=== PATIENT | female | born 1955 | race Caucasian/White ===

== ENCOUNTER 2017-03-30 12:34 | Outpatient (CLI) | payer BC, OTHER ==
[~2017-03-30] VITALS: Ht 162.6 cm; Wt 71.8 kg
[~2017-03-30 12:34] MED LIST: ACYCLOVIR800 MG PO; CYANOCOBAL1000 MCG/1 IM; FISH OIL CONC1000 MG PO; FLEXERIL 1010 MG/TAB PO; LEVOTHYROXINE; LORTAB 5/500 501 TAB PO; NORCO 325 MG-51 TAB PO; PREDNISONE10 MG PO; SYNTHROID0.05 MG/TA PO; TOPAMAX 100MG100 M1 PO; TOPAMAX 100MG100 MG PO; VITAMIN D 400400 IU PO; ZITHROMAX Z PA250 MG PO
[2017-03-30] MEDS ORDERED: NORCO 325 MG-7.1 TAB PO (12:58)
[2017-03-30] MEDS ORDERED: CYTOMEL 2525 MCG/TAB PO (12:59)
[2017-03-30] MEDS ORDERED: LINZESS145CAP PO (13:01)
[2017-03-30 13:05] VITALS: BP 118/76; PULSE 87; TEMP 98.3
== END 2017-03-30 15:03 | disposition home or self-care (01) ==
LOC: EUO 12:34
DX: M81.0 Age-related osteoporosis without current pathological fracture (principal)
CPT/HCPCS: J3489

== ENCOUNTER → 2018-07-18 | Outpatient (CLI) | payer BC, OTHER ==
[~2018-07-18] MED LIST changes: +CYTOMEL 2525 MCG/TAB PO; +LINZESS145CAP PO; +NORCO 325 MG-7.1 TAB PO
== END ==
LOC: MC.RAD 05-10 07:20
DX: Z12.31 Encounter for screening mammogram for malignant neoplasm of breast (principal)

== ENCOUNTER 2018-09-25 14:40 | Outpatient (CLI) | payer BC, OTHER ==
[~2018-09-25] VITALS: Ht 162.6 cm; Wt 72.8 kg
[~2018-09-25 14:40] MED LIST changes: -VITAMIN D 400400 IU PO; +VITAMIND3 5000 PO
[2018-09-25] MEDS ORDERED: ULTRAM 50MG TAB50 MG PO (15:08)
[2018-09-25] MEDS ORDERED: MAXALT MLT10 MG/TAB PO (15:09)
[2018-09-25] MEDS ORDERED: PHENTERMINE15 MG PO (15:09)
[2018-09-25] MEDS ORDERED: FORTAMET500 M1 PO (15:10)
[2018-09-25 15:14] VITALS: BP 115/62; PULSE 66; TEMP 97.9
== END 2018-09-25 16:00 | disposition home or self-care (01) ==
LOC: EUO 14:40
DX: M81.0 Age-related osteoporosis without current pathological fracture (principal)
CPT/HCPCS: J3489

== ENCOUNTER 2019-06-17 14:34 | Emergency (ER) | payer BC, OTHER ==
[~2019-06-17] VITALS: Ht 162.6 cm; Wt 68.2 kg
[~2019-06-17 14:34] MED LIST changes: +FORTAMET500 M1 PO; +MAXALT MLT10 MG/TAB PO; +PHENTERMINE15 MG PO; +ULTRAM 50MG TAB50 MG PO
[2019-06-17 14:40] VITALS: TEMP 99.1
[2019-06-17] MEDS ORDERED: FLEXERIL 1010 MG/TAB PO (15:35)
[2019-06-17 16:00] LABS: ALANINE AMINOTRANSFERASE 10 U/L (9-52); ALBUMIN 4.1 gm/dL (3.5-5.0); ALKALINE PHOSPHATASE 63 U/L (50-136); ANION GAP 9 mmol/L (7-16); AST,SGOT 16 U/L (15-37); BILIRUBIN,TOTAL 0.4 mg/dL (0.0-1.0); BLOOD UREA NITROGEN 14 mg/dL (7-17); CALCIUM 9.3 mg/dL (8.4-10.2); CARBON DIOXIDE 21 mmol/L (22-30); CHLORIDE 111 mmol/L (98-107); CREATININE, serum 0.78 (0.52-1.25); GLUCOSE 80 mg/dL (74-106); POTASSIUM 3.8 mmol/L (3.4-5.0); SODIUM 141 mmol/L (137-145); TOTAL PROTEIN 7.2 gm/dL (6.4-8.2)
[2019-06-17 16:02] LABS: C-REACTIVE PROTEIN < 0.5 mg/dL (0.0-0.9)
[2019-06-17 16:10] LABS: BASO % 0.7 % (0.0-2.0); EOS # 0.2 (0.0-0.7); EOS % 2.7 % (0-4.0); GRAN % 34.3 % (42.2-75.2); HEMATOCRIT 40.2 % (37.0-47.0); LYMPH # 3.1 (1.2-3.4); LYMPH % 53.9 % (20.0-51.0); MEAN CELL VOLUME 90 fl (80.0-100.0); MEAN CORPUSCULAR HEMOGLOBIN 29 pg (27.0-31.0); MEAN CORPUSCULAR HGB CONC 32 g/dl (33.0-37.0); MEAN PLATELET VOLUME 10.1 fl (7.4-10.4); MONO # 0.5 (0.1-0.6); MONO % 8.2 % (1.7-9.3); PLATELET COUNT 217 K/mm3 (130-400); RED BLOOD COUNT 4.47 M/mm3 (4.10-5.30); REDCELL DISTRIBUTION WIDTH-CV 12.6 % (11.5-14.5)
[2019-06-17 16:38] LABS: ERYTHROCYTE SEDIMENTATION RATE 5 mm/hr (0-30)
[2019-06-17 17:19] VITALS: BP 122/79; PULSE 75
== END 2019-06-17 17:20 | disposition home or self-care (01) ==
LOC: COL.ER 14:34
PROVIDERS: Emergency Medicine
DX: M25.562 Pain in left knee (principal); M79.7 Fibromyalgia; Z90.710 Acquired absence of both cervix and uterus; Z86.718 Personal history of other venous thrombosis and embolism; Z79.84 Long term (current) use of oral hypoglycemic drugs; Z87.891 Personal history of nicotine dependence

== ENCOUNTER 2019-09-30 14:30 | Outpatient (CLI) | payer MEDICARE, OTHER ==
[~2019-09-30] VITALS: Ht 162.6 cm; Wt 70.1 kg
[~2019-09-30 14:30] MED LIST changes: +MASON NATURAL2000 IU PO; -VITAMIND3 5000 PO
[2019-09-30 15:27] VITALS: BP 122/72; PULSE 74; TEMP 98
[2019-09-30] MEDS ORDERED: SYNTHROID0.088 MG/T PO (15:38)
[2019-09-30] MEDS ORDERED: MAXALT10 MG PO (15:39)
== END 2019-09-30 17:08 | disposition home or self-care (01) ==
LOC: EUO 14:30
DX: M81.0 Age-related osteoporosis without current pathological fracture (principal)
CPT/HCPCS: J3489

== ENCOUNTER → 2020-11-03 | Outpatient (CLI) | payer MEDICARE, OTHER ==
[~2020-11-03] VITALS: Ht 162.6 cm; Wt 72.9 kg
[~2020-11-03] MED LIST changes: +MAXALT10 MG PO; +SYNTHROID0.088 MG/T PO
[2020-11-03 15:20] VITALS: BP 117/62; PULSE 52; TEMP 98.4
== END ==
LOC: EUO 14:45
DX: M81.0 Age-related osteoporosis without current pathological fracture (principal)
CPT/HCPCS: J3489

== ENCOUNTER 2021-10-21 12:19 | Outpatient (CLI) | payer MEDICARE, OTHER ==
[~2021-10-21] VITALS: Ht 162.6 cm; Wt 72.8 kg
[~2021-10-21 12:19] MED LIST changes: +SYNTHROID0.075 MG/T PO; -SYNTHROID0.088 MG/T PO
[2021-10-21] MEDS ORDERED: MASON NATURAL2000 IU PO (13:02)
[2021-10-21] MEDS ORDERED: RESTASIS MULTI5.5 ML OP (13:02)
[2021-10-21] MEDS ORDERED: NURTEC ODT75 MG PO ×2 (13:02→13:41)
[2021-10-21] MEDS ORDERED: NATURAL E400 IU PO (13:03)
[2021-10-21 13:12] VITALS: BP 127/82; PULSE 82; TEMP 98
[2021-10-21] MEDS ORDERED: REPATHA SU140 MG/1 M SQ (13:33)
[2021-10-21] MEDS ORDERED: VOLTAREN SR25 MG/TAB PO (13:40)
--- NOTE | 2021-10-21 13:40 | NUR ---
IV DC'd with catheter intact. Pt exits dept with steady gait.
[2021-10-21] MEDS ORDERED: REVIA 50MG TABL50 MG PO (13:41)
[2021-10-21] MEDS ORDERED: MAXALT MLT10 MG/TAB PO (13:42)
== END 2021-10-21 13:44 | disposition home or self-care (01) ==
LOC: EUO 12:19
DX: M81.0 Age-related osteoporosis without current pathological fracture (principal)
CPT/HCPCS: J3489

== ENCOUNTER 2023-08-30 09:36 | Outpatient (CLI) | payer MEDICARE, OTHER ==
[~2023-08-30] VITALS: Ht 162.6 cm; Wt 78.4 kg
[~2023-08-30 09:36] MED LIST changes: +NATURAL E400 IU PO; +NURTEC ODT75 MG PO; +REPATHA SU140 MG/1 M SQ; +RESTASIS MULTI5.5 ML OP; +REVIA 50MG TABL50 MG PO; +SYNTHROID0.088 MG/T PO; +VOLTAREN SR25 MG/TAB PO
[2023-08-30 09:48] VITALS: BP 126/81; PULSE 79; TEMP 98.5
--- NOTE | 2023-08-30 10:12 | NUR ---
pt tolerated prolia injection well. pt's vs remained wnl and pt ambulates independently following injection. pt free from acute concerns and complaints at time of discharge. pt observed for 30 minutes following injection as this is her first prolia injection, pt remained free from signs and symptoms of allergic/adverse reaction.
== END 2023-08-30 10:25 | disposition home or self-care (01) ==
LOC: EUO 09:36
DX: M81.0 Age-related osteoporosis without current pathological fracture (principal)
CPT/HCPCS: J0897

== ENCOUNTER → 2024-01-15 | Outpatient (CLI) | payer MEDICARE, OTHER ==
[~2024-01-15] MED LIST changes: +Iohexol 300 - 100 ML VIAL IV ONE; +NS 100 ML IV SCH
== END ==
LOC: COL.RAD 13:20
DX: R31.29 Other microscopic hematuria (principal)
CPT/HCPCS: Q9967